=== PATIENT | male | born 1980 | race African-American/Black ===

== ENCOUNTER → 2022-07-12 | Outpatient (CLI) | payer OTHER ==
[~2022-07-12] MED LIST: NKHM
== END | disposition home or self-care (01) ==
LOC: RAD 05:41
PROVIDERS: ATTEND Internal Medicine
DX: M25.561 Pain in right knee (principal); M25.562 Pain in left knee

== ENCOUNTER → 2022-08-05 | Outpatient (CLI) | payer OTHER | END | disposition home or self-care (01) | LOC: US 01:07 | PROVIDERS: ATTEND Surgery | DX: N18.2 Chronic kidney disease, stage 2 (mild) (principal) ==